=== PATIENT | female | born 1980 | race Caucasian/White ===

== ENCOUNTER 2018-05-09 00:34 | Emergency (ER) | payer OTHER, MEDICAID, SELFPAY ==
[2018-05-09 00:36] VITALS: BP 96/62; PULSE 61; RESP 18; TEMP 36.5; O2SAT 100; BMI 25.1
--- NOTE | 2018-05-09 00:36 | DI.US.S_ITS ---
PROCEDURE: US OB <= 14 WEEKS FETUS INDICATIONS: VAGINAL BLEEDING OUTSIDE/PRIOR DATING DATA: Last menstrual period (LMP): 02/19/2018. LMP-based estimated date of delivery (SUKH): 11/26/2018. First dating scan (date and location): 05/09/2018. Estimated date of delivery (SUKH) from first dating scan: 12/15/2018. TECHNIQUE: Real-time scanning was performed of the fetus and maternal pelvic organs, with image documentation. Endovaginal scanning was also performed to better visualize the fetus and maternal ovaries. COMPARISON: None. FINDINGS: Embryo: Intrauterine identified. [place]-rump length measures 2.0 cm corresponding to an estimated ultrasound gestational age of 8 weeks 4 days. No heart motion identified. Measurement variability in dating: +/- 4 weeks by LMP, +/- 7 days by mean sac diameter (use before 6 weeks gestation if crown-rump length not able to be measured), +/- 5 days by crown-rump length (up to 8 weeks 6 days gestation), +/- 7 days by crown-rump length (up to 13 weeks 6 days gestation). Maternal organs: 2.8 x 2.3 cm left corpus luteal cyst is noted. Right adnexa is sonographically normal. Limited images through the kidneys demonstrate no hydronephrosis. IMPRESSION: Intrauterine with ultrasound estimated gestational age of 8 weeks 4 days. No cardiac activity identified compatible with demise. Dictated by: Sugar Padron MD, PhD on 05/09/2018 at 8:30 Approved by: Sugar Padron MD, PhD on 05/09/2018 at 8:32
--- NOTE | 2018-05-09 01:20 | ED_ITS ---
HPI - General Chief complaint: OB/Uterine Contractions Stated complaint: Vaginal bleeding, Time Seen by Provider: 05/09/18 00:35 Source: patient and family Mode of arrival: ambulatory Limitations: no limitations History of Present Illness HPI Narrative: 38-year-old female, nonsmoker, at 11 weeks with chief complaint of vaginal spotting since about 3:00 p.m.. She has some vague right lower quadrant pain. She is followed by OB in billing a.m. but presents to us at the request of the provider in the emergency department at [facility] emergency department in Monday after a very thorough evaluation. They do not have access to ultrasound at that facility. Patient has had unremarkable to this point. Blood work at outside hospital notes beta quantitative HCG to be 2000, with Rh type positive. Pelvic exam was performed and noted a closed cervical os with minimal dark blood. Patient : Yes Review of Systems Constitutional Denies chills, Denies fever(s), Denies lethargy and Denies weakness Eyes Denies change in vision, Denies eye discharge, Denies irritation and Denies loss of vision ENT Ears, Nose, Mouth, and Throat: Denies change in voice, Denies neck pain and Denies sore throat Cardiovascular Denies chest pain, Denies irregular heart rhythm, Denies lightheadedness, Denies palpitations, Denies dyspnea, Denies dyspnea on exertion and Denies orthopnea Respiratory Denies cough, Denies dyspnea, Denies dyspnea on exertion and Denies wheezing Gastrointestinal Gastrointestinal: Denies abdominal pain, Denies change in bowel habits, Denies diarrhea, Denies nausea and Denies vomiting Genitourinary Reports abnormal vaginal bleeding, Denies hematuria, Denies flank pain, Denies urinary incontinence and Denies urinary urgency Musculoskeletal Denies neck pain Integumentary/Breasts Denies pruritus, Denies erythema, Denies rash and Denies wounds Neurologic Denies confusion, Denies loss of vision and Denies weakness Psychiatric Denies anxiety, Denies confusion, Denies depression, Denies homicidal ideation and Denies suicidal ideation Endocrine Denies palpitations Hematologic/Lymphatic Denies easy bruising Allergic/Immunologic Denies wheezing PMFSH - Past Medical History Medical history: Reports non-contributory Surgical history: Reports non-contributory Patient : Yes Psychiatric history: Reports no psych history Family history: Reports no significant family history Exam Narrative Exam Narrative: GEN: AOx3 and in mild distress EYES: Pupils are equal, round, and reactive to light and accommodation. Extraoccular muscles are intact bilaterally. There is no subconjunctival hemorrhage or exudate. CHEST: Lungs are clear to auscultation bilaterally and free of wheezes, rales, or rhonchi. Heart rate is regular rhythm, there are no murmurs, clicks, rubs, or gallops. There is no chest wall tenderness. ABD: Abdomen is soft mild tenderness in suprapubic region. There is no guarding or rebound. Bowel sounds are normal in all 4 quadrants. There is no mass or organomegaly. PELVIC: deferred as prior ED provider completed exam EXT: Full painless ROM of all extremities with no loss of sensation or strength. SKIN: Warm, pink, and dry. No erythema or rash Initial Vital Signs Initial Vital Signs: Vital Signs Temperature 97.7 F 05/09/18 00:36 Pulse Rate 61 05/09/18 00:36 Respiratory Rate 18 05/09/18 00:36 Blood Pressure 96/62 05/09/18 00:36 Pulse Oximetry 100 05/09/18 00:36 Course Orders Ordered: ED Orders 05/09/18 00:36 US OB <= 14 weeks fetus Stat Discontinued Medications Hydrocodone Bitart/Acetaminophen (Vicodin Prepack) 1 bottle MISC SEEINSTR ONE Stop: 05/09/18 01:44 Ondansetron HCl (Zofran Odt Prepack) 1 bottle MISC SEEINSTR ONE Stop: 05/09/18 01:44 Vital Signs - 8 hr 05/09/18 00:36 Temperature 97.7 F Pulse Rate 61 Respiratory Rate 18 Blood Pressure 96/62 Pulse Oximetry 100 MDM - OB/Uterine Contractions Imaging Data Pelvic US: Radiologist's impression: demise at 8 weeks 4 days [facility] Narrative Medical decision making narrative: at 11 weeks, ultrasound notes demise at 8 months 4 days. Patient has very minimal bleeding and moderate pain. Discussed options and offered to call patient's shot man but patient would prefer to go home with pain meds and nausea meds and call in the morning. She and were given return precautions and verbalized understanding. Discharge Plan Departure Patient Disposition: Home Clinical Impression: demise Activity Restrictions/Additional Instructions: *You have been diagnosed with [ intrauterine demise ] *What to do: *Follow up with your OB doctor in 2-3 days, call for an appointment. Let them know you were seen in the Emergency Department and that we ask that you be seen in follow up *Return to ER if you should have any new, worsening or concerning symptoms , such as [ increased pain, bleeding through more than 1 pad per hour for over 1 hr, dizziness, lightheadedness or other bothersome symptoms]
[2018-05-09] MEDS: HYDROCODONE/ACET 5/325 PREPACK 1 BOTTLE MISC (01:58)
[2018-05-09] MEDS: ONDANSETRON 4 MG ODT PREPACK 1 BOTTLE MISC (01:58)
[2018-05-09 02:09] VITALS: BP 112/65; PULSE 66; RESP 15; TEMP 36.8; O2SAT 99
== END 2018-05-09 02:09 | disposition home or self-care (01) ==
PROVIDERS: Emergency Provider Emergency Medicine
DX: O02.1 Missed abortion (principal)
CPT/HCPCS: 76801; 76817; 99282; 99284

== ENCOUNTER 2018-05-11 17:25 | Observation (INO) | payer OTHER, MEDICAID, SELFPAY ==
[2018-05-11] VITALS (10 sets, daily range): BP systolic 90–126; BP diastolic 56–83; PULSE 70–108; RESP 10–21; TEMP 36.4–36.8; O2SAT 97–100
--- NOTE | 2018-05-11 | PATH_ITS ---
[facility] Accession Number: [id number] . 01 Material submitted: . POC . 02 Diagnosis: Products of Conception: Chorionic villi present. No evidence of neoplasm. MRV/05/16/2018 . 02 Electronically signed: . Moses Barbosa MD, PhD, Pathologist NPI- [id number] . 01 Gross description: . Received in formalin, labeled products of conception, are multiple fragments of red-brown spongy and partially membranous tissue (6.0 x 5.5 x 3.0 cm in aggregate). No tissue is identified. Wood Scrap Handler tissue is submitted in cassettes A1-A4. ([id number]) /MRV . 02 Pathologist provided ICD-10: O03.9 . 02 CPT . 989989 Performed at: 01 [facility] [address] [id number] MD Miguel Santizo MD Phone: [phone] Performed at: 02 [facility] [address] [place], [place] [id number] MD Daiana Lopez MD Phone: [phone]
[2018-05-11] MEDS: HYDROMORPHONE 1 MG INJ IV ×2 (18:05→18:29)
[2018-05-11] MEDS: SODIUM CHLORIDE 0.9% 1,000 ML 1000 ML IV (18:05)
[2018-05-11] MEDS: ONDANSETRON 4 MG/2 ML INJ IV (18:05)
[2018-05-11 18:08] LABS: Add Manual Diff / Slide Review NO; Basophils Absolute Auto 100 /uL (0-100); Basophils Percent Auto 0.5 % (0-2); Eosinophils Absolute Auto 0 /uL (0-450); Hematocrit 39.1 % (36-46); Hemoglobin 13.2 g/dL (12.0-16.0); Lymphocytes Absolute Auto 1000 /uL (1100-4500); Lymphocytes Percent Auto 6.3 % (25-40); Mean Corpuscular HGB Conc 33.7 % (30-36); Mean Corpuscular Hemoglobin 32.6 PG (26-34); Mean Corpuscular Volume 96.5 fL (80-100); Monocytes Absolute Auto 500 /uL (0-900); Monocytes Percent Auto 3.4 % (3-14); Neutrophils Absolute Auto 13900 /uL (1500-7000); Neutrophils Percent Auto 89.8 % (50-75); Platelet Count 203 X10^3/uL (150-400); Red Blood Cell Count 4.05 X10^6/uL (4.0-5.2); Red Cell Distribution Width 12.4 % (11.6-14.8); White Blood Cell Count 15.5 X10^3/uL (4.5-11.0)
--- NOTE | 2018-05-11 18:17 | PC.NURSE ---
Dr Natarajan in room with patient and spouse
[2018-05-11 18:19] LABS: BUN Creatinine Ratio 27.5 (6-22); Blood Urea Nitrogen 11 mg/dL (7-17); Carbon Dioxide 20 mmol/L (22-32); Chloride 102 mmol/L (98-107); Estimated Glomerular Filt Rate > 60.0 mL/min (>60); Glucose 112 mg/dL (70-100); HEMOLYSIS < 15 (0-50); Sodium 136 mmol/L (137-145)
--- NOTE | 2018-05-11 18:30 | PM.PREOP ---
Pre-operative Note Interval Note History & Physical reviewed/Exam performed by Physician: Yes Changes to H&P: No
--- NOTE | 2018-05-11 18:30 | PM.GYNHP.1 ---
History of Present Illness Reason for admission: incomplete Narrative: Celso Shane is a 38 year old female who was found to have an incomplete miscarriage found when she began bleeding and presented to the emergency room on 05/09/2018. She had some bleeding on and off but tremendous pain and passing clots. She return to the emergency room it [facility] and found to have retained products of conception. She presented here to proceed with a suction D&C to complete the AB. [facility] Medical History Anxiety (Chronic) Surgical History H/O LEEP (Inactive) H/O section (Inactive) H/O exploratory laparotomy (Inactive) Social History Smoking Status: Former smoker Social History Smoking Status: Former smoker Meds Home Medications Medication Instructions Recorded Confirmed Type hydrocodone-acetaminophen 1 tab PO Q4-6H PRN #10 tab 05/09/18 Rx ondansetron 4 mg PO TID-QID PRN #10 tab 05/09/18 Rx Allergies Allergy/AdvReac Type Severity Reaction Status Date / Time No Known Drug Allergies Allergy Verified 05/11/18 17:41 Review of Systems Review of Systems Severe abdominal pain with nausea. Abdominal cramping. Vaginal bleeding. All systems reviewed & are unremarkable except as noted in HPI and below Exam Vital Signs (past 8 hours): - 05/11/18 17:37 05/11/18 18:26 Temperature 97.5 F L Pulse Rate 89 87 Respiratory Rate 14 Blood Pressure 121/63 Blood Pressure [Right Arm] 124/76 Pulse Oximetry 97 99 Oxygen Delivery Method Room Air Narrative Exam Narrative: Patient is obviously in distress unable to sit still. HEENT exam within normal limits. Lungs are clear to auscultation and percussion. Heart is regular rate and rhythm, no S3-S4 or murmurs. No thyromegaly. Abdomen is soft with tenderness throughout the abdomen. No palpable organomegaly. Patient has moderate vaginal bleeding. Pelvic exam was not repeated. Extremities without edema and nontender. Objective Labs Result Diagrams: 05/11/18 17:50 05/11/18 17:50 Labs: Laboratory Results - last 24 hr 05/11/18 05/11/18 17:50 17:50 WBC 15.5 H RBC 4.05 Hgb 13.2 Hct 39.1 MCV 96.5 MCH 32.6 MCHC 33.7 RDW 12.4 Plt Count 203 Neut % (Auto) 89.8 H Lymph % (Auto) 6.3 L M[place]ulloch % (Auto) 3.4 Eos % (Auto) 0.0 L Baso % (Auto) 0.5 Neut # (Auto) 10948 H Lymph # (Auto) 1000 L [place] # (Auto) 500 Eos # (Auto) 0 Baso # (Auto) 100 Sodium 136 L Potassium 4.0 Chloride 102 Carbon Dioxide 20 L BUN 11 Creatinine 0.40 L Estimated GFR > 60.0 BUN/Creatinine Ratio 27.5 H Glucose 112 H Calcium 9.0 Assessment & Plan (1) Incomplete : Current visit: Yes Status: Acute Plan: Assessment/Plan Narrative: Patient with incomplete AB and severe pain requesting completion of AB with suction D&C. Consent form was reviewed with the patient and signed. Risk of infection, perforation resulting in damage to internal structures such as bowel, bladder, ureters. Risk of retained products after D&C. Risk of scar tissue in the uterus that might cause infertility in the future. Discussed slightly increased risk of complication of retained products or bleeding due to the for prior sections. Patient's questions were answered.
--- NOTE | 2018-05-11 18:37 | P.HPOB_ITS ---
History of Present Illness Reason for admission: incomplete Narrative: Celso Shane is a 38 year old female who was found to have an incomplete miscarriage found when she began bleeding and presented to the emergency room on 05/09/2018. She had some bleeding on and off but tremendous pain and passing clots. She return to the emergency room it [facility] and found to have retained products of conception. She presented here to proceed with a suction D&C to complete the AB. [facility] Medical History Anxiety (Chronic) Surgical History H/O LEEP (Inactive) H/O section (Inactive) H/O exploratory laparotomy (Inactive) Social History Smoking Status: Former smoker Social History Smoking Status: Former smoker Meds Home Medications Medication Instructions Recorded Confirmed Type hydrocodone-acetaminophen 1 tab PO Q4-6H PRN #10 tab 05/09/18 Rx ondansetron 4 mg PO TID-QID PRN #10 tab 05/09/18 Rx Allergies Allergy/AdvReac Type Severity Reaction Status Date / Time No Known Drug Allergies Allergy Verified 05/11/18 17:41 Review of Systems Review of Systems Severe abdominal pain with nausea. Abdominal cramping. Vaginal bleeding. All systems reviewed & are unremarkable except as noted in HPI and below Exam Vital Signs (past 8 hours): - 05/11/18 17:37 05/11/18 18:26 Temperature 97.5 F L Pulse Rate 89 87 Respiratory Rate 14 Blood Pressure 121/63 Blood Pressure [Right Arm] 124/76 Pulse Oximetry 97 99 Oxygen Delivery Method Room Air Narrative Exam Narrative: Patient is obviously in distress unable to sit still. HEENT exam within normal limits. Lungs are clear to auscultation and percussion. Heart is regular rate and rhythm, no S3-S4 or murmurs. No thyromegaly. Abdomen is soft with tenderness throughout the abdomen. No palpable organomegaly. Patient has moderate vaginal bleeding. Pelvic exam was not repeated. Extremities without edema and nontender. Objective Labs Result Diagrams: 05/11/18 17:50 05/11/18 17:50 Labs: Laboratory Results - last 24 hr 05/11/18 05/11/18 17:50 17:50 WBC 15.5 H RBC 4.05 Hgb 13.2 Hct 39.1 MCV 96.5 MCH 32.6 MCHC 33.7 RDW 12.4 Plt Count 203 Neut % (Auto) 89.8 H Lymph % (Auto) 6.3 L [place] % (Auto) 3.4 Eos % (Auto) 0.0 L Baso % (Auto) 0.5 Neut # (Auto) 35028 H Lymph # (Auto) 1000 L [place] # (Auto) 500 Eos # (Auto) 0 Baso # (Auto) 100 Sodium 136 L Potassium 4.0 Chloride 102 Carbon Dioxide 20 L BUN 11 Creatinine 0.40 L Estimated GFR > 60.0 BUN/Creatinine Ratio 27.5 H Glucose 112 H Calcium 9.0 Assessment & Plan (1) Incomplete : Current visit: Yes Status: Acute Plan: Assessment/Plan Narrative: Patient with incomplete AB and severe pain requesting completion of AB with suction D&C. Consent form was reviewed with the patient and signed. Risk of infection, perforation resulting in damage to internal structures such as bowel , bladder, ureters. Risk of retained products after D&C. Risk of scar tissue in the uterus that might cause infertility in the future. Discussed slightly increased risk of complication of retained products or bleeding due to the for prior sections. Patient's questions were answered.
--- NOTE | 2018-05-11 18:46 | ED.PREGNANCY ---
HPI - General Chief complaint: Vaginal Bleeding Stated complaint: states having a miscarriage Time Seen by Provider: 05/11/18 18:40 Source: patient Mode of arrival: ambulatory Limitations: no limitations History of Present Illness HPI Narrative: 38-year-old female with known demise is sent for D&C. She is sent from an outside facility and call has been placed to our hasher machine operator whom is awaiting the patient to take to the OR. She was seen here few days ago and had ultrasound demonstrating a lack of progression of her demise. The patient has ongoing pain in bleeding and requires D&C. She is bleeding through greater than 1 pad per hour and now feels a bit lightheaded MD Complaint: abdominal pain and vaginal bleeding Pain Consistency: constant Location: pelvis Severity: severe Quality: Cramping Radiation: pelvis Exacerbating factors: movement Patient : Yes OB History - Current : other OB History - Previous Pregnancies: no complications care: none Related Data Previous Rx's Medication Instructions Recorded ondansetron 4 mg PO TID-QID PRN #10 tab 05/09/18 hydrocodone-acetaminophen 2 tab PO Q4-6H PRN #30 tab 05/11/18 Allergies Allergy/AdvReac Type Severity Reaction Status Date / Time No Known Drug Allergies Allergy Verified 05/11/18 17:41 Review of Systems Constitutional Denies chills, Denies fever(s), Denies lethargy and Denies weakness Eyes Denies change in vision, Denies eye discharge, Denies irritation and Denies loss of vision ENT Ears, Nose, Mouth, and Throat: Denies change in voice, Denies neck pain and Denies sore throat Cardiovascular Denies chest pain, Denies irregular heart rhythm, Denies lightheadedness, Denies palpitations, Denies dyspnea, Denies dyspnea on exertion and Denies orthopnea Respiratory Denies cough, Denies dyspnea, Denies dyspnea on exertion and Denies wheezing Gastrointestinal Gastrointestinal: Denies abdominal pain, Denies change in bowel habits, Denies diarrhea, Denies nausea and Denies vomiting Genitourinary Reports abnormal vaginal bleeding, Denies hematuria, Reports pelvic pain, Denies flank pain, Denies urinary incontinence and Denies urinary urgency Musculoskeletal Denies neck pain Integumentary/Breasts Denies pruritus, Denies erythema, Denies rash and Denies wounds Neurologic Denies confusion, Denies loss of vision and Denies weakness Psychiatric Denies anxiety, Denies confusion, Denies depression, Denies homicidal ideation and Denies suicidal ideation Endocrine Denies palpitations Hematologic/Lymphatic Denies easy bruising Allergic/Immunologic Denies wheezing PMFSH - Past Medical History Medical history: Reports non-contributory Surgical history: Reports non-contributory Patient : Yes Psychiatric history: Reports no psych history Family history: Reports no significant family history Exam Narrative Exam Narrative: GEN: 38-year-old female obviously uncomfortable, tearful and anxious EYES: Pupils are equal, round, and reactive to light and accommodation. Extraoccular muscles are intact bilaterally. There is no subconjunctival hemorrhage or exudate. CHEST: Lungs are clear to auscultation bilaterally and free of wheezes, rales, or rhonchi. Heart rate is regular rhythm, there are no murmurs, clicks, rubs, or gallops. There is no chest wall tenderness. ABD: Abdomen is soft and mildly tender There is no guarding or rebound. Bowel sounds are normal in all 4 quadrants. There is no mass or organomegaly. EXT: Full painless ROM of all extremities with no loss of sensation or strength. SKIN: Warm, pink, and dry. No erythema or rash Initial Vital Signs Initial Vital Signs: Vital Signs Temperature 97.5 F L 05/11/18 17:37 Pulse Rate 89 05/11/18 17:37 Respiratory Rate 14 05/11/18 17:37 Blood Pressure 121/63 05/11/18 17:37 Pulse Oximetry 97 05/11/18 17:37 Course Course Narrative: Patient seen by Ob nearly immediately upon arrival in taken to the OR for D and C Orders Ordered: Discontinued Medications Hydrocodone Bitart/Acetaminophen (Valentine 5/325) 2 tab PO Q4HR PRN PRN Reason: Pain, Severe (7-10) Fentanyl (Sublimaze) 50 mcg IV Q5MIN PRN PRN Reason: Pain, Moderate (4-6) Hydromorphone HCl (Dilaudid) 1 mg IV NOW ONE Stop: 05/11/18 17:53 Last Admin: 05/11/18 18:05 Dose: 1 mg Hydromorphone HCl (Dilaudid) 1 mg IV NOW ONE Stop: 05/11/18 18:29 Last Admin: 02/01/19 18:29 Dose: 1 mg Hydromorphone HCl (Dilaudid) 1 mg IM Q5MIN PRN PRN Reason: Pain, Severe (7-10) Hydroxyzine Pamoate (Vistaril) 50 mg PO NOW PRN PRN Reason: Pain, Mild (1-3) Sodium Chloride (Normal Saline 0.9%) 1,000 mls @ 1,000 mls/hr IV BOLUS ONE Stop: 05/11/18 18:51 Last Admin: 05/11/18 18:05 Dose: 1,000 mls/hr Cefazolin Sodium/Dextrose (Ancef) 2 gm in 100 mls @ 200 mls/hr IV NOW ONE Stop: 05/11/18 18:57 Last Infusion: 05/11/18 19:25 Dose: 0 mls/hr Admin: 05/11/18 19:15 Dose: 200 mls/hr Lactated Ringer's (Lactated Ringers) 1,000 mls @ 100 mls/hr IV CONT TEREZA Last Admin: 05/11/18 19:00 Dose: 100 mls/hr Lactated Ringer's (Lactated Ringers) 1,000 mls @ 42 mls/hr IV CONT TEREZA Meperidine HCl (Demerol) 25 mg IV Q5MIN PRN PRN Reason: Pain or shivering Metoclopramide HCl (Reglan) 10 mg IV NOW PRN PRN Reason: Nausea And Vomiting Ondansetron HCl (Zofran) 4 mg IV NOW ONE Stop: 05/11/18 17:53 Last Admin: 05/11/18 18:05 Dose: 4 mg Oxycodone/Acetaminophen (Percocet 5/325) 1 tab PO Q30MIN PRN PRN Reason: Mild or moderate pain Vital Signs - 8 hr 05/11/18 17:37 05/11/18 18:26 Temperature 97.5 F L Pulse Rate 89 87 Respiratory Rate 14 Blood Pressure 121/63 Blood Pressure [Right Arm] 124/76 Pulse Oximetry 97 99 MDM - OB/Uterine Contractions Lab Data Result diagrams: 05/11/18 17:50 05/11/18 17:50 Lab Results 05/11/18 05/11/18 05/11/18 Range/Units 17:50 17:50 17:50 WBC 15.5 H (4.5-11.0) X10^3/uL RBC 4.05 (4.0-5.2) X10^6/uL Hgb 13.2 (12.0-16.0) g/dL Hct 39.1 (36-46) % MCV 96.5 (80-100) fL MCH 32.6 (26-34) PG MCHC 33.7 (30-36) % RDW 12.4 (11.6-14.8) % Plt Count 203 (150-400) X10^3/uL Neut % (Auto) 89.8 H (50-75) % Lymph % (Auto) 6.3 L (25-40) % Christian % (Auto) 3.4 (3-14) % Eos % (Auto) 0.0 L (2-4) % Baso % (Auto) 0.5 (0-2) % Neut # (Auto) 19562 H (0608-6592) /uL Lymph # (Auto) 1000 L (5025-1398) /uL Christian # (Auto) 500 (0-900) /uL Eos # (Auto) 0 (0-450) /uL Baso # (Auto) 100 (0-100) /uL Sodium 136 L (137-145) mmol/L Potassium 4.0 (3.4-5.1) mmol/L Chloride 102 (98-107) mmol/L Carbon Dioxide 20 L (22-32) mmol/L BUN 11 (7-17) mg/dL Creatinine 0.40 L (0.52-1.04) mg/dL Estimated GFR > 60.0 (>60) mL/min BUN/Creatinine Ratio 27.5 H (6-22) Glucose 112 H (70-100) mg/dL Calcium 9.0 (8.4-10.2) mg/dL HCG, Quant 917.00 mIU/mL Blood Type O Positive Antibody Screen Negative Discharge Plan Departure Patient Disposition: Admitted as Observation Clinical Impression: Vaginal bleeding, Incomplete Discharge Date/Time: 05/11/18 19:07 Interventions: ED Discharge Assessment Last Done: 05/11/18 19:06 Admit Date/Time: 05/11/18 19:04 Admit Provider: Jennifer Natarajan
[2018-05-11] MEDS: LACTATED RINGERS 1,000 ML 100 ML IV (19:00)
[2018-05-11] MEDS: CEFAZOLIN 2 GM/100 ML FROZ.PIGGY IV (19:15)
--- NOTE | 2018-05-11 19:44 | PM.OP.1 ---
Operative Date/Time/Diagnoses Date of procedure: 05/11/18 Time of procedure: 19:44 Pre-op diagnosis: Incomplete miscarriage Post-op diagnosis: same Procedure & Clinicians Procedure: Suction dilation and curettage Same procedure as scheduled: Yes Indications: Incomplete miscarriage Surgeon: Jennifer Natarajan Click Yes if Unassisted: Yes Anesthesia Type: General Operative Notes Findings: Retained products of conception Closure Type: not applicable Specimen(s): other (Retained products of conception) Estimated Blood Loss (mL): 20 Blood products transfused: none Procedure in detail: Patient was brought to the operating room where she underwent general anesthesia. She was placed in low Yellofin stirrups and prepped and draped in the usual sterile fashion. 2 g of Ancef were in prior to beginning of the case. Warming was with blankets. Due to the short nature of the procedure no pulsatile stockings were in place. A check system was reviewed with the staff in the room. A single-tooth tenaculum placed on the anterior lip of the cervix and the cervix was found to already be dilated to a 10. Hegar dilator. The uterus was sounded. A 9. Suction curette was placed in the uterus and tissue removed. Sharp curettage was performed followed by repeat suction. The bleeding was minimal at the end of the case. The patient went to recovery room in good condition. Counts of instruments and sponges were correct. Complications: none Condition: stable Disposition: same day surgery Plan for aftercare: Home when awake and stable
== END 2018-05-11 20:28 | disposition home or self-care (01) ==
LOC: ED 18:47 → AC 19:05
PROVIDERS: Emergency Medicine; Admitting Provider Specialist; Emergency Provider Emergency Medicine; Visit Provider Specialist
PROC: (CPT 58120; principal; 2018-05-11 19:15)
DX: O03.4 Incomplete spontaneous abortion without complication (principal); N93.9 Abnormal uterine and vaginal bleeding, unspecified; F41.9 Anxiety disorder, unspecified; Z87.891 Personal history of nicotine dependence
CPT/HCPCS: 59812; 80048; 84702; 85025; 86850; 86900; 86901; 88305; 96374; 96375; 99282; 99285; G0378; J0690; J1100; J1170; J1885; J2250; J2405; J2704; J3010

== ENCOUNTER → 2019-05-09 12:27 | Outpatient (CLI) | payer OTHER, MEDICAID, SELFPAY ==
[2019-05-09 13:39] LABS: Appearance Urine UA CLEAR; Bilirubin Urine UA NEGATIVE (NEGATIVE); Color Urine UA YELLOW; Glucose Urine UA NEGATIVE (Negative); Ketones Urine UA NEGATIVE (NEGATIVE); Leukocyte Esterase Urine UA NEGATIVE (NEGATIVE); Nitrite Urine UA POSITIVE (Negative); Occult Blood Urine UA TRACE-LYSED (Negative); Protein Urine UA NEGATIVE (Negative); Specific Gravity Urine UA 1.015 (1.000-1.035); Urobilinogen Urine UA 0.2 E.U./dL (0.2)
[2019-05-09 13:42] LABS: Add Manual Diff / Slide Review NO; Basophils Absolute Auto 0 /uL (0-100); Basophils Percent Auto 0.2 % (0-2); Eosinophils Absolute Auto 100 /uL (0-450); Hematocrit 40.4 % (36-46); Hemoglobin 13.9 g/dL (12.0-16.0); Lymphocytes Absolute Auto 1400 /uL (1100-4500); Lymphocytes Percent Auto 15.7 % (25-40); Mean Corpuscular HGB Conc 34.4 % (30-36); Mean Corpuscular Hemoglobin 33.5 PG (26-34); Mean Corpuscular Volume 97.4 fL (80-100); Monocytes Absolute Auto 500 /uL (0-900); Monocytes Percent Auto 6.1 % (3-14); Neutrophils Absolute Auto 6600 /uL (1500-7000); Platelet Count 174 X10^3/uL (150-400); Red Blood Cell Count 4.15 X10^6/uL (4.0-5.2); Red Cell Distribution Width 12.4 % (11.6-14.8); White Blood Cell Count 8.6 X10^3/uL (4.5-11.0)
[2019-05-09 13:52] LABS: Bacteria Urine Many (>30); RBC Urine 0-1/HPF (0-5/HPF); Squamous Epithelial Cell Urine 10-30 /HPF (0-5/HPF); WBC Urine 5-10/HPF (0-5/HPF)
[2019-05-09 16:34] LABS: Hepatitis B Surface Antigen NEGATIVE s/c (NEGATIVE)
[2019-05-09 16:50] LABS: HIV 1 & 2 Ab/Ag 4th Gen Combo NEGATIVE (NEGATIVE); Hep C Virus Ab w/Reflex Quant NEGATIVE s/c (NEGATIVE)
[2019-05-11 14:33] LABS: Varicella IgG Antibody > 4000.00 Index (< 135.00)
[2019-05-11 19:11] LABS: RPR Screen Nonreactive (Nonreactive)
== END ==
PROVIDERS: PCP Nurse Practitioner Family; Visit Provider Specialist
DX: O09.521 Supervision of elderly multigravida, first trimester (principal)
CPT/HCPCS: 36415; 80055; 81003; 81015; 81420; 86787; 86803; 86850; 86900; 86901; 87077; 87086; 87186; 87389

== ENCOUNTER → 2019-10-23 11:55 | Outpatient (CLI) | payer OTHER, MEDICAID, SELFPAY ==
[2019-10-24 11:40] LABS: Strep Grp B PCR NEG for Grp B Strep
== END ==
PROVIDERS: PCP Nurse Practitioner Family; Visit Provider Specialist
DX: Z34.83 Encounter for supervision of other normal pregnancy, third trimester (principal)
CPT/HCPCS: 87653

== ENCOUNTER → 2019-11-12 08:18 | Outpatient (CLI) | payer OTHER, MEDICAID, SELFPAY ==
[2019-11-13 19:04] LABS: COVID19 Sendout Not Detected (Not Detect)
== END ==
PROVIDERS: PCP Nurse Practitioner Family; Visit Provider Physician Assistant
DX: Z11.59 Encounter for screening for other viral diseases (principal)
CPT/HCPCS: 87635

== ENCOUNTER 2019-11-14 08:04 | Inpatient (IN) | payer OTHER, MEDICAID, SELFPAY ==
[2019-11-14] MEDS: LACTATED RINGERS 1,000 ML 100 ML IV ×2 (08:15→12:13)
[2019-11-14 08:44] LABS: Add Manual Diff / Slide Review NO; Basophils Absolute Auto 100 /uL (0-100); Basophils Percent Auto 0.8 % (0-2); Eosinophils Absolute Auto 100 /uL (0-450); Eosinophils Percent Auto 1.3 % (2-4); Hematocrit 36.1 % (36-46); Hemoglobin 12.3 g/dL (12.0-16.0); Lymphocytes Absolute Auto 1600 /uL (1100-4500); Lymphocytes Percent Auto 16.5 % (25-40); Mean Corpuscular Hemoglobin 32.6 PG (26-34); Mean Corpuscular Volume 96.1 fL (80-100); Monocytes Absolute Auto 500 /uL (0-900); Monocytes Percent Auto 5.5 % (3-14); Neutrophils Absolute Auto 7200 /uL (1500-7000); Neutrophils Percent Auto 75.9 % (50-75); Platelet Count 166 X10^3/uL (150-400); Red Blood Cell Count 3.76 X10^6/uL (4.0-5.2); Red Cell Distribution Width 13.5 % (11.6-14.8); White Blood Cell Count 9.4 X10^3/uL (4.5-11.0)
--- NOTE | 2019-11-14 09:44 | PM.PREOP ---
Pre-operative Note COVID-19 COVID-19 status: Negative Result date/Date tested (Pos, Neg/Pending): 11/12/19 Interval Note History & Physical reviewed/Exam performed by Physician: Yes Changes to H&P: No
[2019-11-14] MEDS: CEFAZOLIN 2 GM/100 ML FROZ.PIGGY IV (10:00)
--- NOTE | 2019-11-14 10:12 | SUR.OPER ---
Supine on padded OR bed, head on pillow, arms secured on padded arm boards at <90 degrees abduction, legs uncrossed, safety belt at thigh, tape over blanket over lower legs.
--- NOTE | 2019-11-14 10:17 | SUR.OPER ---
Viable female delivered at 10:13. Cord blood vials x2 and placenta sent with L&D RN.
[2019-11-14 10:50] VITALS: BP 123/75; PULSE 74; RESP 20; TEMP 36.1; O2SAT 100
[2019-11-14 10:55] VITALS: BP 123/75; PULSE 76; RESP 12; O2SAT 100
--- NOTE | 2019-11-14 10:56 | P.OP_ITS ---
Operative Date/Time/Diagnoses Date of procedure: 11/14/19 Time of procedure: 10:56 Pre-op diagnosis: 39 week gestation with prior sections for repeat C- section Post-op diagnosis: same Procedure & Clinicians Procedure: Repeat low-transverse section Same procedure as scheduled: Yes Indications: Four prior sections for repeat section Surgeon: Jennifer Natarajan General Warehouse Associate: Rajan Baker Yes if Unassisted: No Anesthesia Type: Spinal Operative Notes Findings: Normal tubes, ovaries, uterus. Viable female infant weighing 7 lb 4 oz Closure Type: primary Specimen(s): none sent Applied: catheter (Beebe) Estimated Blood Loss (mL): 250 Blood products transfused: none Procedure in detail: The patient was brought to the operating room where she underwent a spinal for anesthesia. She was placed in a supine position with a left lateral tilt. A Beebe catheter was placed. Pulsatile stockings were placed and functional throughout the case. 2 g of Ancef were given IV prior to the incision. Warming was in place. The patient was prepped and draped in usual sterile fashion. A low transverse incision was made with a scalpel removing the prior incision and the incision was carried down to the fascial layer which was incised transversely with a scalpel. The rectus muscles were in the midline and the peritoneal incision was made with no damage to internal structures. The peritoneum was incised and superiorly and inferiorly. Bladder blade was placed and a bladder flap was developed and the bladder held away from the lower uterine segment. An incision was made in the uterus with the scalpel and the incision was extended with stretching. The head was elevated out of the abdomen and with fundal pressure the baby was delivered. The infant was bulb suctioned for clear fluid and handed off to the warmer. Cord blood was collected. The placenta delivered spontaneously with traction. The uterus was cleaned with clean laps. The uterine incision was closed in 2 layers of 0 chromic suture the first a running locking layer the second an imbricating layer. The bladder peritoneum was repaired with 2-0 Vicryl suture. The gutters were cleaned of any remaining fluids and ovaries and tubes were observed to be normal. Adequate hemostasis was noted. The perineum was closed with 2-0 Vicryl suture. The fascia layer was closed with 0 Vicryl suture with 2 stitches. The incision was irrigated and adequate hemostasis noted. The incision was closed with interrupted 3-0 Vicryl sutures and then a subcuticular stitch of 4-0 Vicryl suture. Steri-Strips were placed. The uterus was massaged to remove any clots. The patient went to recovery room in good condition. Counts of instruments and sponges were correct. Complications: none Post-operative Condition: stable Disposition: other ( Center) Plan for aftercare: Routine post section
[2019-11-14 11:00] VITALS: BP 119/73; PULSE 94; RESP 14; O2SAT 100
[2019-11-14 11:05] VITALS: BP 111/78; PULSE 70; RESP 16; O2SAT 100
[2019-11-14 11:20] VITALS: BP 125/74; PULSE 80; RESP 16; O2SAT 100
--- NOTE | 2019-11-14 13:03 | RT ---
At 1000, I stood by for airway support for . The did not need any intervention by me. Assisted by the fabulous Nurse Debbie.
[2019-11-14 14:12] VITALS: BP 116/67; PULSE 79; RESP 19; TEMP 37.2
[2019-11-14] MEDS: OXYCODONE IR 5 MG TABLET PO (15:41)
[2019-11-14] MEDS: KETOROLAC 30 MG/ML VIAL IV ×2 (16:43→22:44)
[2019-11-14] MEDS: OXYCODONE IR 5 MG TABLET 10 MG PO ×2 (19:34→23:38)
[2019-11-14] MEDS: LANOLIN OINT 7 GM 1 APPLIC TOP (23:39)
[2019-11-15] MEDS: OXYCODONE IR 5 MG TABLET 10 MG PO ×2 (03:45→11:33)
[2019-11-15] MEDS: KETOROLAC 30 MG/ML VIAL IV (05:18)
[2019-11-15 08:28] LABS: Add Manual Diff / Slide Review NO; Basophils Absolute Auto 0 /uL (0-100); Basophils Percent Auto 0.4 % (0-2); Eosinophils Absolute Auto 100 /uL (0-450); Hematocrit 33.3 % (36-46); Hemoglobin 11.6 g/dL (12.0-16.0); Lymphocytes Absolute Auto 1200 /uL (1100-4500); Lymphocytes Percent Auto 10.7 % (25-40); Mean Corpuscular HGB Conc 34.6 % (30-36); Mean Corpuscular Hemoglobin 33.1 PG (26-34); Mean Corpuscular Volume 95.6 fL (80-100); Monocytes Absolute Auto 800 /uL (0-900); Monocytes Percent Auto 7.6 % (3-14); Neutrophils Absolute Auto 8700 /uL (1500-7000); Neutrophils Percent Auto 80.3 % (50-75); Platelet Count 117 X10^3/uL (150-400); Red Blood Cell Count 3.49 X10^6/uL (4.0-5.2); Red Cell Distribution Width 13.2 % (11.6-14.8); White Blood Cell Count 10.8 X10^3/uL (4.5-11.0)
--- NOTE | 2019-11-15 09:04 | PM.OBDS.1 ---
Discharge Providers Provider Date of admission: 11/14/19 08:04 Discharge Date: 11/15/19 Primary care physician: SOCO Rahman Consults: 11/14/19 11:11 Consult to [employer] Tender Routine Comment: Discharge provider: Jennifer Natarajan MD Summary Hospital Course Date Patient Seen: 11/15/19 Time Patient Seen: 09:11 Procedures: Repeat low-transverse section Hospital Course: Patient underwent a repeat low-transverse section. She is doing well and is requesting discharge Peripartum Data Delivery Method: Section (5th section) Procedures: Repeat low-transverse section complications: none 1: Gender: Female Disposition of : home Discharge Diagnosis (1) Status post repeat low transverse section: Status: Acute Time Spent with Patient Time attestation: Total time spent providing and/or coordinating discharge services: Objective Labs Result Diagrams: 11/15/19 08:12 Labs: Laboratory Results - last 24 hr 11/14/19 11/15/19 08:30 08:12 WBC 10.8 RBC 3.49 L Hgb 11.6 L Hct 33.3 L MCV 95.6 MCH 33.1 MCHC 34.6 RDW 13.2 Plt Count 117 L Neut % (Auto) 80.3 H Lymph % (Auto) 10.7 L [place] % (Auto) 7.6 Eos % (Auto) 1.0 L Baso % (Auto) 0.4 Neut # (Auto) 8700 H Lymph # (Auto) 1200 [place] # (Auto) 800 Eos # (Auto) 100 Baso # (Auto) 0 Blood Type O Positive Antibody Screen Negative Exam Vital Signs (past 8 hours): Blood pressure 117/60, pulse 73, temperature 98.3? Oxygen Delivery Method Room Air Narrative Exam Narrative: Abdomen is soft, nontender. Uterus is firm, at U, nontender. Dressing is clean, dry, intact. Mild lochia. Extremities without edema and nontender. Patient is O positive and rubella immune she received the Tdap in the 3rd trimester Discharge Plan Discharge Plan Patient Disposition: Home Discharge orders & Medications Prescriptions: New oxycodone-acetaminophen 5-325 mg Tablet 2 tab PO Q4HR PRN (Reason: Pain, Severe (7-10)) Qty: 40 RF: 0 ibuprofen 600 mg Tablet 600 mg PO Q6HR PRN (Reason: Fever/Mild Pain (1-3)) Qty: 30 RF: 0 Continued prenat.vits,casey,zbe-cgio-uaxzf Tablet 1 tab PO DAILY RF: 0 omeprazole 20 mg capsule,delayed release(DR/EC) 20 mg PO DAILY RF: 0 Osbaldo Probiotic 14 billion cell capsule PO RF: 0 Follow up/Referrals: Manuela Beckham ARNP [Primary Care Provider] - Jennifer Natarajan MD [Physician] - 12/04/19 2:15 pm (monday (appointment made)) Diet/Activity/Treatments Diet: Regular Activity: Nothing in vagina or lifting over 20 lb for 6 weeks Skin/Wound/Dressing Care Report to your healthcare provider any signs of infection, such as:: chills, fever, increased pain and unusual redness Dressing: May remove dressing, may get Steri-Strips wet just pat dry, remove in 1 week Discharge Data Primary Care Provider: Manuela Beckham
[2019-11-15] MEDS: IBUPROFEN 600 MG TABLET PO (11:33)
== END 2019-11-15 13:20 | disposition home or self-care (01) | DRG 540 ==
PROVIDERS: Admitting Provider Specialist; PCP Nurse Practitioner Family; Referring Provider Specialist; Visit Provider Specialist
PROC: 10D00Z1 Extraction of Products of Conception, Low, Open Approach (ICD-10-PCS; CPT 59514; principal; 2019-11-14 09:45)
DX: O34.211 Maternal care for low transverse scar from previous cesarean delivery (principal); Z3A.39 39 weeks gestation of pregnancy; Z37.0 Single live birth
CPT/HCPCS: 36415; 59050; 59514; 85025; 86850; 86900; 86901; J0690; J1885; J2274

== ENCOUNTER → 2020-01-02 13:19 | Outpatient (CLI) | payer OTHER, MEDICAID, SELFPAY ==
--- NOTE | 2020-01-02 13:20 | DI.US.S_ITS ---
LIMITED ULTRASOUND OF RIGHT BREAST: 01/02/2020 CLINICAL: Palpable right breast lump. No prior exams were available for comparison. Real-time ultrasound of the right breast upper outer quadrant was performed on the area of interest. No discrete cystic or solid mass lesion identified in the area of palpable abnormality. A few mildly dilated ducts were noted without filling defects. IMPRESSION: INCOMPLETE: NEEDS ADDITIONAL IMAGING EVALUATION There is no abnormality seen in the right breast to correspond with the palpable abnormality in the upper outer quadrant, however, clinical followup is recommended. A mammogram is also recommended for further evaluation when clinically feasible. This exam was interpreted at Station ID: [id number]. Electronically Signed By: Miguel Miramontes M.D. ddjeanne/:01/02/2020 15:47:57 letter sent: Clinical Evaluation Ultrasound BI-RADS: 0 Indeterminate
== END ==
PROVIDERS: PCP Nurse Practitioner Family; Referring Provider Physician Assistant; Visit Provider Specialist
DX: R92.8 Other abnormal and inconclusive findings on diagnostic imaging of breast (principal); N63.11 Unspecified lump in the right breast, upper outer quadrant
CPT/HCPCS: 76642

== ENCOUNTER → 2020-01-30 15:07 | Outpatient (CLI) | payer OTHER, MEDICAID, SELFPAY ==
--- NOTE | 2020-01-30 | DI.MG.S_ITS ---
BILATERAL DIGITAL DIAGNOSTIC MAMMOGRAM 3D/2D: 01/30/2020 CLINICAL: Right breast lump. Baseline exam. Comparison is made to exam dated: 01/02/2020 [facility]. The tissue of both breasts is heterogeneously dense. This may lower the sensitivity of mammography. No significant masses, calcifications, or other findings are seen in either breast. IMPRESSION: NEGATIVE There is no abnormality seen in the right breast to correspond with the palpable abnormality in the upper outer quadrant, however, clinical correlation is recommended. There is no mammographic evidence of malignancy. A 1 year screening mammogram is recommended. This exam was interpreted at Station ID: [id number]. NOTE: For mammograms, a report in lay terms will be sent to the patient. Approximately 15% of breast malignancies will not be visualized mammographically. In the management of a palpable breast mass, a negative mammogram must not discourage biopsy of a clinically suspicious lesion. Electronically Signed By: Sandoval [email or web address]:01/30/2020 16:38:57 letter sent: Clinical Evaluation ACR BI-RADS Category 1: Negative [id number]
== END ==
PROVIDERS: PCP Nurse Practitioner Family; Referring Provider Specialist; Visit Provider Specialist
DX: N63.10 Unspecified lump in the right breast, unspecified quadrant (principal)
CPT/HCPCS: 77066; G0279

== ENCOUNTER 2021-05-17 07:40 | Emergency (ER) | payer OTHER, MEDICAID, SELFPAY ==
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
[2021-05-17 08:00] VITALS: BP 141/91; PULSE 85; RESP 18; TEMP 36.9; O2SAT 99; BMI 26.6
[2021-05-17] MEDS: HYDROCODONE/ACET 5/325 TABLET 2 TAB PO (08:22)
== END 2021-05-17 08:27 | disposition home or self-care (01) ==
PROVIDERS: Emergency Provider Emergency Medicine; PCP Nurse Practitioner Family
DX: K04.7 Periapical abscess without sinus (principal)
CPT/HCPCS: 99283